=== PATIENT | female | born 1970 | race African-American/Black ===

== ENCOUNTER 2021-02-17 12:51 | Emergency (ER) | payer OTHER ==
[~2021-02-17] VITALS: Ht 172.7 cm; Wt 73.0 kg
[~2021-02-17 12:51] MED LIST: CIPR500T5; DICY20TA11; LOPE2CAP; METRONIDAZOL; ONDA8TAB
[2021-02-17 13:00] VITALS: BP 135/89
[2021-02-17] MEDS ORDERED: POLY10DR LEFTEYE (13:17)
== END 2021-02-17 13:26 | disposition home or self-care (01) ==
LOC: ER 13:26
DX: H10.022 Other mucopurulent conjunctivitis, left eye (principal)
CPT/HCPCS: 99281

== ENCOUNTER 2025-04-17 19:52 | Emergency (ER) | payer OTHER ==
[~2025-04-17] VITALS: Ht 167.6 cm; Wt 79.0 kg
[~2025-04-17 19:52] MED LIST changes: +CIPR-452; -CIPR500T5; -DICY20TA11; +DICY20TA2; +POLY10DR LEFTEYE
[2025-04-17 20:03] VITALS: TEMP 36.7; O2SAT 99
[2025-04-17 21:29] LABS: BASOPHILS % 0.7 % (0.0-2.0); EOSINOPHILS % 0.8 % (0.0-5.0); HEMATOCRIT. 35.8 % (36.0-48.0); HEMOGLOBIN. 12.1 g/dL (12.0-16.0); LYMPHOCYTES % 22.2 % (20.0-50.0); MEAN PLATELET VOLUME 7.9 fl (7.4-10.4); MONOCYTES % 6.7 % (2.0-8.0); NEUTROPHILS % 69.6 % (40.0-76.0); PLATELET 269 x1000/uL (130-400); RED BLOOD CELL COUNT 4.03 mill/uL (4.2-5.4); RED CELL DISTRIBUTION WIDTH 14.8 % (11.6-14.6)
[2025-04-17 21:44] LABS: CREATININE 0.8 mg/dL (0.6-1.0)
[2025-04-17 21:45] LABS: TROPONIN I HIGH SENSITIVITY < 4 ng/L (3.0-34); UREA NITROGEN BLOOD 12 mg/dL (9-23)
[2025-04-17 21:46] LABS: ASPARTATE AMINOTRANSFERASE 23 IU/L (<34)
[2025-04-17 21:47] LABS: BILIRUBIN DIRECT < 0.1 mg/dL (<=3.0); BILIRUBIN TOTAL 0.4 mg/dL (0.1-1.0); PROTEIN TOTAL 7.7 g/dL (6.0-8.3)
[2025-04-17 22:27] LABS: CLARITY URINE CLEAR (CLEAR); COLOR URINE YELLOW (YELLOW); GLUCOSE URINE NEGATIVE (NEGATIVE); KETONES URINE TRACE (NEGATIVE); LEUKOCYTE ESTERASE URINE TRACE (NEGATIVE); NITRITE URINE NEGATIVE (NEGATIVE); OCCULT BLOOD URINE 1+ (NEGATIVE); PH URINE 5.5 (4.5-8.0); PROTEIN URINE TRACE (NEGATIVE); SPECIFIC GRAVITY URINE 1.028 (1.005-1.030); UROBILINOGEN URINE 1.0 E.U./dL (0.2-1.0)
[2025-04-17 22:52] LABS: BACTERIA URINE 1+; RBC URINE 0-2 /hpf (0-2); SQUAMOUS EPITHELIAL CELL URINE 1+ /lpf (RARE/1+); WBC URINE 0-2 /hpf (0-2)
[2025-04-17 23:51] VITALS: BP 145/90; PULSE 70; RESP 18; O2SAT 99
== END 2025-04-17 23:53 | disposition home or self-care (01) ==
LOC: ER 20:19
DX: R53.1 Weakness (principal); M06.9 Rheumatoid arthritis, unspecified; F41.9 Anxiety disorder, unspecified; Z79.899 Other long term (current) drug therapy
CPT/HCPCS: 36415; 71045; 80048; 80076; 81003; 84484; 85025; 93005; 99285